=== PATIENT | female | born 1945 | race Caucasian/White ===

== ENCOUNTER 2020-01-06 11:09 | Outpatient (CLI) | payer MEDICARE, SELFPAY ==
[2020-01-06 12:39] LABS: Basophils Percent Auto 0.7 % (0.2-1.2); Eosinophils Absolute Auto 0.2 K/mm3 (0-0.3); Eosinophils Percent Auto 3.7 % (0-4.4); Hematocrit 39.9 % (37.0-47.0); Hemoglobin 12.9 g/dL (12.0-15.0); Immature Granulocyte Absolute 0.02 K/mm3 (0.00-0.031); Immature Granulocyte Percent A 0.4 % (0-0.5); Lymphocytes Absolute Auto 1.75 K/mm3 (0.9-3.2); Lymphocytes Percent Auto 32.8 % (18.3-44.2); Mean Corpuscular HGB Conc 32.3 g/dl (32-36); Mean Corpuscular Hemoglobin 30.3 pg (26-34); Mean Corpuscular Volume 93.7 fl (80-100); Mean Platelet Volume 10.9 fl (7.4-10.4); Monocytes Absolute Auto 0.4 K/mm3 (0.1-0.6); Monocytes Percent Auto 6.7 % (2.6-8.5); Neutrophils Percent Auto 55.7 % (45.5-73.1); Platelet Count Result 213 k/mm3 (150-375); Red Blood Count 4.26 M/mm3 (4.2-5.4); Red Cell Distribution Width 13.2 % (11.5-14.5); White Blood Count 5.3 K/mm3 (4.5-10.0)
[2020-01-06 12:40] LABS: Creatinine Urine 156.2 mg/dL; Total Protein Urine Random 13 mg/dL
[2020-01-06 12:44] LABS: Add Urine Microscopic? YES; Appearance Urine Clear (Clear); Bacteria Urine Trace /hpf; Bilirubin Urine Negative (Negative); Blood Urine Negative (Negative); Color Urine Yellow (Yellow); Glucose Urine UA Negative (Negative); Ketones Urine Negative (Negative); Leukocyte Esterase Ur 3+ LEU/UL (Negative); Mucus Urine Rare /lpf; Nitrate Urine Negative (Negative); Protein Urine Negative (Negative); RBC Urine 0-2 /hpf (0-2); Squamous Epithelial Cell Urine Many /hpf (Few); Transitional Epi Cells Urine Rare /hpf (None Seen); Urobilinogen Urine Negative mg/dL (<2.0); WBC Urine 16-20 /hpf
[2020-01-06 12:45] LABS: Phosphorus 3.9 mg/dL (2.5-4.5)
[2020-01-06 12:47] LABS: Alanine Aminotransferase 29 U/L (4-35); Albumin Level 4.1 g/dL (3.5-5.1); Alkaline Phosphatase 77 U/L (38-126); Aspartate Amino Transferase 33 U/L (14-36); Bilirubin,Total 0.6 mg/dL (0.2-1.3); Blood Urea Nitrogen 24 mg/dL (7-17); Calcium 9.6 mg/dL (8.4-10.2); Carbon Dioxide 24 mmol/L (22-30); Chloride 107 mmol/L (98-107); Cholesterol 244 mg/dL (0-200); Estimated Glomerular Filt Rate 54; Glucose 99 mg/dL (65-105); HDL Direct 41 mg/dL; Potassium 4.5 mmol/L (3.4-5.0); Sodium 136 mmol/L (137-145); Triglycerides 207 mg/dL (<150); Uric Acid 6.6 mg/dL (2.5-7.5)
[2020-01-06 12:57] LABS: Parathyroid Intact 49.3 pg/mL (7.5-53.5)
[2020-01-06 12:58] LABS: LDL Cholesterol Direct 148 mg/dL
[2020-01-06 12:59] LABS: Hemoglobin A1C 5.6 % (<5.7)
[2020-01-06 13:18] LABS: Vitamin D 25 Hydroxy 57.5 ng/mL
== END 2020-01-06 11:10 | disposition home or self-care (01) ==
PROVIDERS: PCP Family Medicine
DX: R80.9 Proteinuria, unspecified (principal); N18.3 Chronic kidney disease, stage 3 (moderate); E11.65 Type 2 diabetes mellitus with hyperglycemia; I12.9 Hypertensive chronic kidney disease with stage 1 through stage 4 chronic kidney disease, or unspecified chronic kidney disease; I25.10 Atherosclerotic heart disease of native coronary artery without angina pectoris; I73.9 Peripheral vascular disease, unspecified; E78.5 Hyperlipidemia, unspecified; E55.9 Vitamin D deficiency, unspecified
CPT/HCPCS: 36415; 80053; 80061; 81001; 82306; 82570; 83036; 83970; 84100; 84156; 84550; 85025; 87086

== ENCOUNTER 2020-01-10 10:21 | Outpatient (CLI) | payer MEDICARE, SELFPAY ==
--- NOTE | ~2020-01-10 | CT_ITS ---
EXAMINATION: CT chest wo con DATE: 01/10/2020 10:48 INDICATION: Pulmonary nodule TECHNIQUE: Computed tomography (CT) of the chest was performed without intravenous contrast. The dose -length product (DLP) was 158.83 mGy-cm. Automated exposure control and iterative reconstruction tech [employer] were employed. COMPARISON: 02/21/2016 FINDINGS: There are multiple stable pulmonary nodules throughout the lungs. The largest measures 5 mm in the left lower lobe. No new or suspicious pulmonary nodule is identified. There is mild dependent atelectasis. No pleural effusion or pneumothorax is present. No pathologically enlarged thoracic lym ph nodes are identified. The heart size is normal. There is dense calcification of the mitral valve a nnulus. Coronary artery calcifications are noted. There are also appear to be coronary artery stents. The gallbladder is surgically absent. There is mild thoracic spondylosis. IMPRESSION: 1. Stable bilateral pulmonary nodules, consistent with old granulomatous disease. Reviewed, dictated and finalized at location A. IMPRESSION: 1. Stable bilateral pulmonary nodules, consistent with old granulomatous diseas e.
== END 2020-01-10 10:22 | disposition home or self-care (01) ==
LOC: ANHIMG 10:25
PROVIDERS: PCP Family Medicine
DX: R91.8 Other nonspecific abnormal finding of lung field (principal)
CPT/HCPCS: 71250

== ENCOUNTER 2020-03-29 13:00 | Outpatient (RCR) | payer MEDICARE, SELFPAY | END 2020-04-11 23:59 | disposition home or self-care (01) | LOC: ANHDMC 13:00 | PROVIDERS: PCP Family Medicine; Visit Provider Family Medicine | DX: E11.9 Type 2 diabetes mellitus without complications (principal); Z71.89 Other specified counseling | CPT/HCPCS: G0108 ==

== ENCOUNTER 2020-03-31 08:00 | Outpatient (CLI) | payer MEDICARE, SELFPAY ==
--- NOTE | ~2020-03-31 | CT_ITS ---
EXAMINATION: CT brain wo con DATE: 03/31/2020 09:03 INDICATION: Headache, dizziness, giddiness. Chronic sinusitis. TECHNIQUE: Computed tomography (CT) of the head was performed without intravenous contrast. The mA wa s adjusted according to patient size. Iterative reconstruction technique was employed. Exam dose: 60 5.33 mGy-cm total exam DLP. COMPARISON: 07/30/2018 CT brain FINDINGS: No intracranial mass lesion or hemorrhage or cerebrovascular accident. No midline shift or mass effect. Normal ventricular size. No subdural or epidural hematoma. Bilateral hyperostosis frontalis interna. Included mastoid air cells and paranasal sinuses are normal ly developed and aerated. IMPRESSION: No significant intracranial abnormality Reviewed, dictated and finalized at Location A. Reviewed, dictated and finalized at location A.
== END 2020-03-31 08:01 | disposition home or self-care (01) ==
PROVIDERS: PCP Family Medicine; Visit Provider Nurse Practitioner Family
DX: R42 Dizziness and giddiness (principal); J32.9 Chronic sinusitis, unspecified; R51 Headache
CPT/HCPCS: 70450

== ENCOUNTER 2020-07-10 10:58 | Outpatient (RCR) | payer MEDICARE, SELFPAY | END 2020-07-11 10:32 | disposition home or self-care (01) | LOC: ANHDMC 10:58 | PROVIDERS: PCP Family Medicine; Visit Provider Family Medicine | DX: E11.9 Type 2 diabetes mellitus without complications (principal); Z71.89 Other specified counseling | CPT/HCPCS: G0108 ==

== ENCOUNTER 2020-10-16 13:34 | Outpatient (RCR) | payer MEDICARE, SELFPAY | END 2020-10-16 15:43 | disposition home or self-care (01) | LOC: ANHDMC 13:34 | PROVIDERS: PCP Family Medicine; Visit Provider Family Medicine | DX: E11.9 Type 2 diabetes mellitus without complications (principal); Z71.89 Other specified counseling | CPT/HCPCS: G0108 ==

== ENCOUNTER 2021-05-27 14:22 | Outpatient (RCR) | payer MEDICARE, SELFPAY ==
--- NOTE | 2021-05-27 16:07 | PTOPEVAL ---
PHYSICAL THERAPY EVALUATION Thank you for referring Lorena Gilbert to [facility].? Lorena was evaluated for the dx of vertigo/BPPV. The patient is scheduled to be seen for therapy?prn determined by weekly phone calls (per pt request-unable to attend regular due to ill spouse). Please review, sign, date and return this plan of care JESSICA. I agree with and certify that the following plan of care is medically necessary. Referring Physician Date Attending Provider: Wily Hagan, *PT Outpatient Evaluation Start: 05/27/21 14:37 Freq: Status: Active Protocol: Document 05/27/21 14:30 MLV (Rec: 05/27/21 16:04 MLV [email or web address]) Therapy Assessment Status Assessment Status Evaluation Pain Assessment Timing of Pain Assessment Timing of Pain Assessment Assessment Self Report Self Report Pain Level 0 Pain Score Pain Score 0: Self Report Cervical and Lumbar ROM Cervical ROM Reason Not Measured WFL/Left,WFL/Right Upper Extremity Range of Motion General Upper Extremity Range of Motion Reason Not Measured WFL/Left,WFL/Right Upper Extremity Muscle Strength Testing General Upper Extremity Strength Reason Not Measured WFL/Left,WFL/Right Gait Assessment Gait Pattern Assessment Other Gait Observations ambulates I w/o a device with mild troy. trendelenberg pattern. No loss of balance noted on level surfaces. Reports that both falls she had were due to dizziness when she first got up from sitting. Vestibular Evaluation Vestibular Medical Information Past Vestibular History Back Pain,Falls,Sinus/Allergy Issues Recent Symptoms Falls,Loss of Balance,Nausea/ Vomiting Onset of Symptoms sudden Recurrence and Prior Episodes of Vertigo none prior to 6 months ago; also has dizziness with initial stance-possible orthostatic hypotension Previous Medical Care/Testing ENT Hearing Changes Gradual Hearing Changes Symptoms Increase Lie Down (sit to supine), Rolling in Bed,Sitting up in Bed Symptoms Decrease Closing Eyes,Sitting Still Types of Symptoms Imbalanced/Unsteady,Spinning Standardized Tests Dizziness Handicap Inventory Standardized Test Scores (Number 0-100) 12 Vestibular Testing Smooth Pursuits Normal Saccades WNL Gaze Stabilization with Fixation WNL Gaze Stabilization without Fixation WNL Head Shake without Fixation
--- NOTE | 2021-06-03 13:50 | PCPTNOTE ---
PT called to check on pt and reports being free of symptoms for at least 4 days. Instructed pt that she can stop her exercise and PT will call in one week to check on her again. Pt can call before if symptoms arise.
--- NOTE | 2021-06-10 11:55 | PCPTNOTE ---
PT called pt to check on symptoms. Pt reports being free of dizziness and has not done her exercises-as planned with last conversation. Instructed to only do them if she gets symptoms and plan to call pt in one week again to check on status.
--- NOTE | 2021-06-17 16:31 | PCPTNOTE ---
PT called to check on Lorena. Patient reports having 2 small dizzy events when getting up out of bed and agrees she probably just got up too quick. Also reports eating foods with a lot of salt, lately and she may need to adjust that too. Plan to call and check on symptoms one more week. No changes to current home therapy plans today.
--- NOTE | 2021-07-03 08:48 | PCPTNOTE ---
PHYSICAL THERAPY DISCHARGE Attending Provider: Wily Hagan, Patient:Lorena Gilbert Date of :1945 Patient has not returned for any further treatments since 05/27/2021 due to completion of therapy at home with a HEP because she must be home to take care of her spouse 24 hrs a day. PT called and checked on pt. and is doing fine with home program, therefore she will be discharged at this time. Patient?s initial visit was on 05/27/2021 14:30 and she had a total of 1 visits. The goals have been met. Thank you for referring this patient to [facility]. Please review, sign, date and return this discharge summary JESSICA. I have been updated about the patient's current status and I agree with discharge from the above service at this time. Referring Physician Date
== END 2021-07-03 17:07 | disposition home or self-care (01) ==
LOC: ANHPT 14:22
PROVIDERS: PCP Family Medicine; Visit Provider Otolaryngology
DX: R42 Dizziness and giddiness (principal)
CPT/HCPCS: 97110; 97162

== ENCOUNTER → 2021-10-24 12:33 | Outpatient (CLI) | payer MEDICARE, SELFPAY ==
--- NOTE | ~2021-10-24 | CT_ITS ---
EXAMINATION: CT abdomen pelvis wo con EXAM DATE: 10/24/2021 12:54 INDICATION: Abdominal pain. TECHNIQUE: Spiral CT of the abdomen and pelvis was performed without contrast. Axial, coronal and s agittal images of the abdomen and pelvis were reviewed. The dose-length product (DLP) for this exami nation was 1014.09 mGy-cm. The exposure was tailored according to patient size (auto mA exposure con trol), and iterative reconstruction (ASIR) was used as additional dose reduction technique. Compariso n is made to prior examination from 11/24/2017. FINDINGS: The liver, spleen, adrenal glands and pancreas are unremarkable. There are cholecystectomy clips. There is no nephrolithiasis or hydronephrosis. 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 The uter us is unremarkable. The bladder is unremarkable. There is no retroperitoneal or pelvic lymphadenop athy. Extensive aortoiliac arterial sclerosis. The appendix is normal. There is moderate sigmoid colonic diverticulosis. There is no adjacent infla mmatory change to suggest diverticulitis. The stomach and small bowel are unremarkable. There is ex pected amount of colonic stool. No free intraperitoneal gas. The heart is normal in size. There a re dense mitral annular calcifications. There are no pericardial or pleural effusions. Right basilar granuloma. There are no osteoblastic or osteolytic lesions identified. IMPRESSION: 1. No acute intra-abdominal findings. 2. Moderate sigmoid diverticulosis. 3. Small umbilical hernia. Reviewed, dictated and finalized at location B.
== END ==
PROVIDERS: PCP Family Medicine; Visit Provider Family Medicine
DX: R10.9 Unspecified abdominal pain (principal); K42.9 Umbilical hernia without obstruction or gangrene; K57.30 Diverticulosis of large intestine without perforation or abscess without bleeding
CPT/HCPCS: 74176